=== PATIENT | female | born 1950 | race Caucasian/White ===

== ENCOUNTER → 2016-10-22 | Outpatient (CLI) | payer BC, OTHER ==
[~2016-10-22] VITALS: Ht 198.1 cm; Wt 160.8 kg
[2016-10-22 11:17] VITALS: BP 122/78; PULSE 81; BMI 20.9
[2016-10-22 11:41] VITALS: BP 160/91; PULSE 88; Ht 198.1 cm; Wt 160.8 kg
== END | disposition home or self-care (01) ==
LOC: C.NEUR 10:40
PROVIDERS: ATTEND Internal Medicine Pulmonary Disease
DX: G47.19 Other hypersomnia (principal); G47.33 Obstructive sleep apnea (adult) (pediatric); F45.8 Other somatoform disorders; Z72.821 Inadequate sleep hygiene

== ENCOUNTER 2024-10-20 05:28 | Observation (INO) ==
--- NOTE | 2024-09-14 14:19 | PAT Medication Instructions ---
Medication Instructions Date of Service September 14, 2024 Home Medications magnesium 100 mg tablet 100 mg PO DAILY vitamin B complex 1 tab PO DAILY Trishala 1 cap PO BID PRN Constipation German Marisela 1 mg PO QAM PRN bowel movement acetaminophen 325 mg tablet 650 mg PO QID PRN Pain naproxen sodium 220 mg tablet (Aleve) 220 mg PO BID PRN Pain Lactobacil.acidophilus-Bifido.animalis 5 billion cell sprinkle capsule (Probiotic) 1 cap PO DAILY curcumin-phosphatidylcholine 500 mg capsule 0 mg PO DAILY omega 4-uzf-crq-fish oil 60 mg-90 mg-500 mg capsule (Fish Oil) 1 cap PO DAILY turmeric 400 mg capsule 0 mg PO DAILY vitamin A 2,400 mcg capsule 2,400 mcg PO DAILY vitamin E 100 unit capsule 45 mg PO DAILY ASK your surgeon for instructions naproxen sodium 220 mg tablet (Aleve) 220 mg PO BID PRN Pain STOP taking 2 weeks before surgery (or as soon as possible if surgery is within 2 weeks) Trishala 1 cap PO BID PRN Constipation German Marisela 1 mg PO QAM PRN bowel movement curcumin-phosphatidylcholine 500 mg capsule 0 mg PO DAILY omega 7-hoh-nwq-fish oil 60 mg-90 mg-500 mg capsule (Fish Oil) 1 cap PO DAILY turmeric 400 mg capsule 0 mg PO DAILY vitamin E 100 unit capsule 45 mg PO DAILY vitamin B complex 1 tab PO DAILY vitamin A 2,400 mcg capsule 2,400 mcg PO DAILY DO NOT take the morning of surgery magnesium 100 mg tablet 100 mg PO DAILY Lactobacil.acidophilus-Bifido.animalis 5 billion cell sprinkle capsule (Probiotic) 1 cap PO DAILY Take morning of surgery With a small sip of water, OTHERWISE NOTHING TO EAT OR DRINK AFTER MIDNIGHT: acetaminophen 325 mg tablet 650 mg PO QID PRN Pain (if needed) Other Notes If you have any questions please call us at [phone] or [phone] or [phone] or [phone]
--- NOTE | 2024-09-19 12:06 | Anesthesiology Consultation ---
Date of Service September 19, 2024 Assessment & Plan (1) Encounter for pre-operative examination: - Outpatient joint assessment: Patient is currently scheduled for inpatient pathway. If re-evaluated and patient/surgeon requests outpatient pathway, patient is not an advised candidate for outpatient joint program. Chart Review Chart Review: Acceptable Risk for Surgery and Patient seen in Pre Admission Testing Teaching & Discussion Pre-Anesthesia Teaching/Discussion Notes: Instructed NPO after midnight before surgery, except medications with 15 cc of water. Medication instructions provided according to the PAT guidelines. History Surgery Operation Date: 10/20/24 10:00 Proposed Procedures p Left Anterior Total Hip Arthroplasty - Uri Bates, Height/Weight Height: 5 ft 4 in Weight: 60.7 kg Allergies Allergy/AdvReac Type Severity Reaction Status Date / Time uncooked fish Allergy Severe fish & Uncoded 09/13/24 11:01 shrimp - Hives sulfur cream Allergy Intermediate worsened Uncoded 09/13/24 11:01 burn Mulch Allergy Uncoded 09/13/24 11:02 Medications Home Medications Medication Instructions Recorded Confirmed Last Taken magnesium 100 mg tablet 100 mg PO DAILY 09/26/20 09/13/24 03/04/22 20:00 vitamin B complex 1 tab PO DAILY 09/26/20 09/13/24 03/04/22 08:00 Portuguese Marisela 1 mg PO QAM PRN bowel movement 02/17/23 09/13/24 Unknown acetaminophen 325 mg tablet 650 mg PO QID PRN Pain 02/17/23 09/13/24 Unknown naproxen sodium 220 mg tablet 220 mg PO BID PRN Pain 02/17/23 09/13/24 Unknown (Aleve) Lactobacil.acidophilus-Bifido.animalis 1 cap PO DAILY 09/13/24 09/13/24 Unknown 5 billion cell sprinkle capsule (Probiotic) curcumin-phosphatidylcholine 500 0 mg PO DAILY 09/13/24 09/13/24 Unknown mg capsule omega 1-gqv-nqr-fish oil 60 mg-90 1 cap PO DAILY 09/13/24 09/13/24 Unknown mg-500 mg capsule (Fish Oil) turmeric 400 mg capsule 0 mg PO DAILY 09/13/24 09/13/24 Unknown vitamin A 2,400 mcg capsule 2,400 mcg PO DAILY 09/13/24 09/13/24 Unknown vitamin E 100 unit capsule 45 mg PO DAILY 09/13/24 09/13/24 Unknown magnesium citrate 100 cap PO PRN Constipation 09/19/24 Unknown mg-triphala,aloe cape 150 mg capsule Additional Notes: She expressed initial concern over medication instructions then reviewed magnesium is only be held the morning of surgery. She verbalized understanding and declined further questions or concerns with medication instructions. Past Medical History Medical History (Updated 09/19/24 @ 12:20 by Rosa Pruett PA-C) Chronic constipation Chronic left hip pain Chronic rhinitis Nausea and vomiting after administration of anesthetic agent hernia surgery Osteoarthritis of left hip Suspected sleep apnea never had sleep study due to insurance issues Patient denies h/o stroke, seizures, heart attack, heart failure, DM, HTN, blood clots/DVTs or blood transfusions. Exercise / Class Metabolic Activity II 4-5 Yardwork/Stairs/Walk up hill (denies chest discomfort or shortness of breath with one flight of stairs) Past Family History Family History Other No family history of adverse response to anesthesia Past Surgical History Surgical History H/O eye surgery rt/left eyes for low angle glaucoma H/O hand surgery rt finger cyst excision H/O laparoscopy unilateral salpingectomy and polyp removal from part of her uterus H/O right inguinal hernia repair (03/05/22) Open Right Indirect Inguinal Hernia with Bassimi Repair, Excision lipoma of round ligament(Right) - Ian Cifuentes MD, FACS H/O: hemorrhoidectomy History of colonoscopy History of esophagogastroduodenoscopy (EGD) Hx of cataract extraction (2022) b/l Hx of inguinal hernia repair Past Anesthesia History No Hx of Anesthesia Complications and No Family Hx of Anesthesia Complications History of PONV No Hx of Motion Sickness and History of PONV Social History Smoking Status: Never smoker Do You Dip or Chew Tobacco: No Hx Alcohol Use: No Alcohol type: beer and wine alcohol intake frequency: holidays/special occasions only Hx Substance Use: No substance use type: does not use Review of Systems Patient denies chest pain, shortness of breath, dyspnea on exertion, reflux, fever, chills, cough, wheezing, or palpitations. Physical Exam Vital Signs Vitals BP 103/67 P 77 TEMP 98.6 SP02 95% on RA RESP 17 Physical Patient resting comfortably in chair in no acute distress, alert and oriented, responding appropriately throughout visit Full cervical extension range of motion without pain TMD 3.5 finger breadths Mallampati Score 2 Dentition: several caps/crowns and one implant left side, denies chipped or loose teeth, or bridges Lungs: normal respiratory effort. Good air movement, clear throughout to auscultation, no adventitious breath sounds Cardiac: regular rate and rhythm, no murmurs noted Carotid arteries: negative bruit bilat Lab Results Anesthesia Preop Results Results Anesthesia Widget: WBC 6.46 K/ul (4.8-10.8) 09/19/24 Hgb 12.0 g/dl (12.0-16.0) 09/19/24 Hct 35.3 % (37.0-47.0) L 09/19/24 Plt 243 K/uL (130-400) 09/19/24 Na 136 mmol/L (136-145) 09/19/24 K 4.2 mmol/L (3.5-5.1) 09/19/24 Cl 104 mmol/L (98-107) 09/19/24 CO2 29 mmol/L (21-32) 09/19/24 BUN 15 mg/dl (6-23) 09/19/24 Creat 0.58 mg/dl (0.6-1.2) L 09/19/24 Glucose Level 92 mg/dl (70-99(Fasting)) 09/19/24 PT 10.6 Seconds (9.0-12.0) 09/19/24 PTT 26 Seconds (21-31) 09/19/24 INR 1.0 (0.9-1.1) 09/19/24 Blood Type A Positive 09/19/24 Antibody Screen NEGATIVE 09/19/24 Testing Electrocardiogram Date: 09/19/24 NSR, rate 70 bpm Low voltage QRS Chest X-Ray Date: 09/19/24 No acute findings.
--- NOTE | 2024-10-19 07:42 | History & Physical Report ---
Date of Service October 19, 2024 Assessment & Plan (1) Osteoarthritis of left hip: We will proceed with a left anterior total of arthroplasty. Postoperatively, she will be started on aspirin for DVT prophylaxis and kept overnight in the hospital for postop medical management. She plans to use [facility] physical therapy after discharge. History of Present Illness Chief Complaint: Osteoarthritis left hip. Primary Care Provider: NO PCP Fior is a pleasant 73-year-old female who has been dealing with chronic increasing left hip and groin pain. X-rays and clinical exam have been diagnostic for advanced arthritis of her left hip. She was seeing my partner, Dr. Lea. After failing conservative treatment, she has elected proceed with a left anterior total of arthroplasty. Allergies Allergy/AdvReac Type Severity Reaction Status Date / Time uncooked fish Allergy Severe fish & Uncoded 09/13/24 11:01 shrimp - Hives sulfur cream Allergy Intermediate worsened Uncoded 09/13/24 11:01 burn Mulch Allergy Uncoded 09/13/24 11:02 Home Medications Medication Instructions Recorded Confirmed Type magnesium 100 mg tablet 100 mg PO DAILY 09/26/20 09/13/24 History vitamin B complex 1 tab PO DAILY 09/26/20 09/13/24 History Solomon Islander Marisela 1 mg PO QAM PRN bowel movement 02/17/23 09/13/24 History acetaminophen 325 mg tablet 650 mg PO QID PRN Pain 02/17/23 09/13/24 History naproxen sodium 220 mg tablet 220 mg PO BID PRN Pain 02/17/23 09/13/24 History (Aleve) Lactobacil.acidophilus-Bifido.animalis 1 cap PO DAILY 09/13/24 09/13/24 History 5 billion cell sprinkle capsule (Probiotic) curcumin-phosphatidylcholine 500 0 mg PO DAILY 09/13/24 09/13/24 History mg capsule omega 5-jln-iga-fish oil 60 mg-90 1 cap PO DAILY 09/13/24 09/13/24 History mg-500 mg capsule (Fish Oil) turmeric 400 mg capsule 0 mg PO DAILY 09/13/24 09/13/24 History vitamin A 2,400 mcg capsule 2,400 mcg PO DAILY 09/13/24 09/13/24 History vitamin E 100 unit capsule 45 mg PO DAILY 09/13/24 09/13/24 History magnesium citrate 100 cap PO PRN Constipation 09/19/24 History mg-triphala,aloe cape 150 mg capsule Past Med/Surg History Problem List Osteoarthritis of right hip Chronic left hip pain Encounter for pre-operative examination Medical History Osteoarthritis of left hip Chronic left hip pain Suspected sleep apnea never had sleep study due to insurance issues Chronic rhinitis Nausea and vomiting after administration of anesthetic agent hernia surgery Chronic constipation Surgical History History of esophagogastroduodenoscopy (EGD) Hx of cataract extraction (2022) b/l Hx of inguinal hernia repair H/O right inguinal hernia repair (03/05/22) Open Right Indirect Inguinal Hernia with Bassimi Repair, Excision lipoma of round ligament(Right) - Ian Cifuentes MD, FACS H/O eye surgery rt/left eyes for low angle glaucoma H/O hand surgery rt finger cyst excision H/O laparoscopy unilateral salpingectomy and polyp removal from part of her uterus H/O: hemorrhoidectomy History of colonoscopy Family History Other No family history of adverse response to anesthesia Social History Smoking Status: Never smoker Second Hand Exposure: No; Do You Dip or Chew Tobacco: No; Tobacco Cessation Education Requested by Patient: No Hx Alcohol Use: No Hx Substance Use: No Preferred Language: Telugu Communication Ability: Effective Medicaid Specialist Required: No Beliefs That Will Affect Care: None marital status: / Current Living Situation: Alone current occupational status: employed Other Information That Helps Us Care for You: No Feels Safe at Home: Yes Safety Concerns: Feels Safe At This Time Diet: regular during the past year weight has: remained stable Assistive Devices: None Review of Systems All systems reviewed & are unremarkable except as noted in HPI & below. Physical Exam On physical exam the left hip, she has decreased range of motion. She has pain with internal/external rotation. All of her pains located in the groin.. Constitutional WD/WN, vitals as above Eyes PERRL, conjunctivae normal, anicteric sclerae ENMT external ear and nose normal, oropharynx normal Neck trachea midline, no thyromegaly Respiratory normal respiratory effort Cardiovascular RRR, no murmur, no edema Gastrointestinal (Abdomen) normal bowel sounds, soft, nontender, no hepatosplenomegaly Psychiatric A+Ox3, euthymic affect Results & Data Results & Data Laboratory Results . Diagnostic Findings X-rays of the left hip show advanced osteoarthritis with joint space narrowing, osteophyte formation, and ivmf-sk-alrl articulation.. PG Care Time/CCT Total # of Minutes Spent Total Time Spent with Patient: Total time spent is greater than 50% in coordination of care (as documented) at patient's floor/unit and/or counseling patient: Coding Level of Care Code None Diagnoses Osteoarthritis of left hip M16.12
[2024-10-20] MEDS: LR 60ML/HR IV SCH (05:49)
[2024-10-20] MEDS: LR 500ML BOLUS, THEN 15ML/HR IV SCH (05:49)
[2024-10-20] MEDS: dexAMETHasone**PF** 10 MG/ML VIAL IV SCH (05:49)
[2024-10-20] MEDS: ACETAMINOPHEN 500 MG TAB PO SCH ×2 (05:49→13:09)
[2024-10-20] MEDS: FAMOTIDINE 20 MG TAB PO SCH (05:49)
[2024-10-20] MEDS: GABAPENTIN 300 MG CAP PO SCH (05:49)
[2024-10-20] MEDS ORDERED: ROPIVACAINE 0.5% 5 MG/ML 30 ML VIAL ONE (06:10)
[2024-10-20] MEDS ORDERED: ONDANSETRON INJ 2 MG/ML 2 ML VIAL IV PRN ×2 (06:32→09:14)
[2024-10-20] MEDS ORDERED: ATROPINE SULFATE 0.1 MG/ML 10ML SYR IV PRN (06:32)
[2024-10-20] MEDS ORDERED: PROMETHAZINE HCL 6.25 MG in SODIUM CHLORIDE 0.9% 50 ML IV PRN (06:32)
[2024-10-20] MEDS ORDERED: KETOROLAC 30 MG/ML VIAL IV PRN (06:32)
[2024-10-20] MEDS ORDERED: HYDROmorphone INJ 1 MG/ML SYRINGE IV PRN (06:32)
--- NOTE | 2024-10-20 06:33 | History & Physical Bridge Note ---
Date of Service October 20, 2024 History & Physical Bridge Note I have examined the patient, reviewed the History & Physical and in the interval since the performance of the History & Physical I have noted the following changes of clinical significance: no changes noted
[2024-10-20] MEDS ORDERED: MIDAZOLAM HCL 1 MG/ML 2ML VIAL ONE ×2 (06:38→06:39)
[2024-10-20] MEDS ORDERED: PROPOFOL IV EMULSION 10 MG/ML 20 ML VIAL IV ONE (06:41)
[2024-10-20] MEDS ORDERED: ONDANSETRON INJ 2 MG/ML 2 ML VIAL ONE ×2 (06:41→07:51)
[2024-10-20] MEDS: TRANEXAMIC ACID 1,000 MG **IV Pre-op IV SCH (06:51)
[2024-10-20] MEDS ORDERED: PHENYLEPHRINE 100MCG/ML 5ML SYR ONE (07:15)
[2024-10-20] MEDS ORDERED: PHENYLEPHRINE HCL 10 MG/ML VIAL ONE (07:37)
[2024-10-20] MEDS: ORTHO JOINT ANESTHETIC ONE (07:40)
[2024-10-20] MEDS: ROPIV 0.5% 246mg, Ketorolac 30mg, EPINEPHrine 0.5mg in NSS INFIL SCH (07:40)
[2024-10-20] MEDS ORDERED: KETOROLAC 30 MG/ML VIAL ONE (07:54)
--- NOTE | 2024-10-20 07:57 | Operative Report ---
PG Post Operative Report Pre & Post Diagnosis Operation Date: 10/20/24 07:00 Pre-Op Diagnosis: Osteoarthritis of left hip Post-Op Diagnosis: Osteoarthritis of left hip I identified the patient and participated in the time-out.: Yes Procedure Operation Date: 10/20/24 07:00 Actual Procedures p Left Anterior Total Hip Arthroplasty(Left) - Uri Bates DO Surgeon Uri Bates DO Transcript Evaluator Danie Rodriguez PA-C Estimated Blood Loss 150 Findings Consistent with Post-Op Diagnosis Specimens Left femoral head Description of Procedure Implants used I used a ZimmerBiomet total hip arthroplasty system with a size 3 standard offset Z1 stem, a 52 mm G7 cup with a 25mm screw, an E1 polyethylene liner, a 36 mm ceramic head with a +3.5 neck. Fior arrived at the hospital for the above procedure. She was seen in the preoperative holding area and the operative extremity was identified and signed. She was given a spinal anesthetic, a preoperative antibiotic, and TXA. She was then taken back to the operating room and laid on the table in the supine position. She was given basic sedation. The operative leg was secured to a Puristst leg positioner. The hip was then prepped and draped in sterile fashion. A timeout was done and the patient and the operative extremity was properly identified. An anterior approach was used. Dissection was taken down through the fascia and the tensor muscle belly was retracted laterally and the rectus was retracted medially. The circumflex vessels were identified and ligated. The capsule was then incised and tagged for later repair. The femoral neck was then cut and the femoral head was removed. The acetabulum was exposed. Time was spent doing a complete circumferential labral release. Sequential reaming of the acetabulum up to a size 51 reamer was done. Final reamings were done under fluoroscopy to ensure appropriate version. A Biomet 52 mm G7 cup was then impacted into place. A single 25 mm screw was placed. The E1 polyethylene liner was then snapped into place. Surrounding soft tissues were then injected with 100 cc of an orthopedic pain control cocktail. The proximal femur was then exposed. Sequential broaching up to a size 3 broach was done. Off that broach a size 36 head with a +3.5 neck was trialed. The hip was reduced and fluoroscopic images showed anatomic alignment of the implants in acceptable length. The broach was removed. The final size 3 standard offset Z1 stem was then impacted into place. A ceramic 36 mm head with a +3.5 neck was then impacted onto the stem and the hip was reduced. Final fluoroscopic images showed anatomic alignment of the hip. The capsule was then closed with #1 Vicryl suture. A dilute betadyne lavage was then done for 3 minutes. The joint was then irrigated with normal saline solution. The fascia was closed with #1 PDS suture. Skin was closed with 2-0 Vicryl, waqar, and a Silverlon dressing. She was then transferred to a hospital bed and taken to the post anesthesia care unit in stable condition. She tolerated the procedure well. Danie Rodriguez PA-C, was present for the entire procedure. He was critical for patient positioning, prepping, draping, retraction exposure, wound closure and application of sterile dressing. I attest to the content of the Intraoperative Record and any orders documented therein. Any exceptions are noted below.
--- NOTE | 2024-10-20 08:55 | XRay Report ---
XR hip 1V LT w pelvis CLINICAL HISTORY: IN PACU - Post Surgical COMPARISON: 03/15/2024 FINDINGS: Left hip prosthesis shows no hardware complication. There is expected soft tissue gas. Sta ble moderate to severe degenerative changes at the right hip. IMPRESSION: Unremarkable postoperative exam. ACT 112: Negative or not required by law. Electronically signed by: Pierre Baez M.D. 10/20/2024 8:52 AM
--- NOTE | 2024-10-20 08:59 | Fluoroscopy Report ---
FL hip LT 1V CLINICAL HISTORY: LEFT ANTERIOR HIP COMPARISON STUDY: 03/15/2024 FLUOROSCOPY TIME: 14 seconds FLUOROSCOPY IMAGES: 1 EXPOSURE DOSE: 1.2 mGy FINDINGS: Fluoroscopy was provided for left hip prosthesis. IMPRESSION: Intraoperative fluoroscopy. ACT 112: Negative or not required by law. Electronically signed by: Pierre Baez M.D. 10/20/2024 8:58 AM
[2024-10-20] MEDS ORDERED: diphenhydrAMINE Capsule 25 MG CAP PO PRN (09:14)
[2024-10-20] MEDS ORDERED: MAGNESIUM HYDROXIDE SUSP 30 ML UDC PO PRN (09:14)
[2024-10-20] MEDS ORDERED: METOCLOPRAMIDE HCL INJ 5 MG/ML 2 ML VIAL IV PRN (09:14)
[2024-10-20] MEDS ORDERED: HYDROmorphone INJ 0.5 MG/0.5 ML SYR IV PRN (09:14)
[2024-10-20] MEDS ORDERED: NALOXONE HCL 0.4 MG/1 ML VIAL/CARP IV PRN (09:14)
[2024-10-20] MEDS: SODIUM CHLORIDE 0.9% 1,000 ML IV SCH (10:03)
[2024-10-20] MEDS: DOCUSATE SODIUM 100 MG CAP PO SCH (12:05)
[2024-10-20] MEDS: MULTIVITAMIN TAB PO SCH (13:09)
[2024-10-20] MEDS: KETOROLAC TROMETHAMINE 15 MG/ML VIAL IV SCH (13:10)
--- NOTE | 2024-10-20 13:12 | Anesthesiology Progress Note ---
Date of Service October 20, 2024 Anesthesia Post Procedure Vital Signs Vital Signs: Temp Pulse Pulse Resp BP BP Pulse Ox 10/20/24 13:11 110/65 10/20/24 12:17 36.4 C L 78 18 99/57 L 97 10/20/24 11:12 36.4 C L 74 18 100/62 99 10/20/24 10:19 36.3 C L 73 18 101/65 98 10/20/24 09:47 36.3 C L 69 18 103/63 97 10/20/24 09:15 36.4 C L 72 16 103/65 97 10/20/24 08:55 36.3 C L 80 15 111/63 94 10/20/24 08:45 77 18 105/59 L 97 10/20/24 08:40 107/63 10/20/24 08:35 73 16 98/61 L 100 10/20/24 08:28 36 C L 78 18 92/47 L 96 10/20/24 05:37 36.5 C 80 20 120/80 96 O2 Del Method O2 Flow Rate 10/20/24 13:11 10/20/24 12:17 Room Air 10/20/24 11:12 Room Air 10/20/24 10:19 Room Air 10/20/24 09:47 Room Air 10/20/24 09:15 Room Air 10/20/24 08:55 Room Air 10/20/24 08:45 Oxymask 2 10/20/24 08:40 10/20/24 08:35 Oxymask 4 10/20/24 08:28 Oxymask 4 10/20/24 05:37 Room Air Transfer of Care Handoff Completed per policy Notes Mental Status: alert / awake / arousable Patient Amnestic to Procedure: Yes Nausea / Vomiting: adequately controlled Pain: adequately controlled Airway Patency, RR, SpO2: stable & adequate BP & HR: stable & adequate Hydration State: stable & adequate Neuraxial Anesthesia: was administered and sensory block is resolving Anesthetic Complications: no major complications apparent
[2024-10-20] MEDS: ASPIRIN 81 MG ECTAB PO SCH (20:26)
[2024-10-20] MEDS: SENNA 8.6 MG TAB PO SCH (20:58)
[2024-10-21 07:16] VITALS: BP 97/60; PULSE 70; RESP 18; TEMP 98.6; O2SAT 92
--- NOTE | 2024-10-21 08:19 | Orthopedic Progress Note ---
Date of Service October 21, 2024 Assessment & Plan (1) S/P total left hip arthroplasty: Overall she is doing very well. She is not having much pain in the left hip. She has been up and ambulating to the bathroom. She will be seen by physical therapy today for ambulation and range of motion exercises. She is on aspirin for DVT prophylaxis. She can be discharged to home later today. She will follow-up with orthopedics in 2 weeks. Kenna Childress was seen and examined at bedside this morning. Overall she is doing very well. She is not having much pain in the left hip. She has been up and ambulated to the bathroom. She has no complaints.. Review of Systems All systems reviewed & are unremarkable except as noted in HPI & below. Physical Exam On physical exam of the left hip, the dressing is clean and dry. Her leg is out full extension. She has active dorsiflexion plantarflexion of her left ankle.. Results & Data Results & Data Laboratory Results . Diagnostic Findings Postoperative x-rays of the left hip show the prosthesis to be in anatomic alignment without any evidence of fracture, dislocation, or loosening.. PG Care Time/CCT Total # of Minutes Spent Total Time Spent with Patient: Total time spent is greater than 50% in coordination of care (as documented) at patient's floor/unit and/or counseling patient: Coding Level of Care Code 15537 Post Operative Follow-Up Diagnoses S/P total left hip arthroplasty Z96.642
== END 2024-10-21 11:55 | disposition home or self-care (01) ==
LOC: 3E 05:28 → ASU 05:28